=== PATIENT | male | born 1960 | race Caucasian/White ===

== ENCOUNTER 2016-08-05 10:07 | Inpatient (IN) | payer BC, OTHER ==
[~2016-08-05] VITALS: Ht 170.2 cm; Wt 79.0 kg
--- NOTE | ~2016-08-05 | H ---
[facility] [address] [place] [address] HISTORY AND PHYSICAL Name: HARRY PAULA Room #: 211-P [facility] IN M.R.#: [id number] Admission: 08/05/16 Attend Phys: James Ramirez MD, Discharge: 08/06/16 Date of : 64 Report #: [id number] THIS REPORT FOR: //name// CC: FAM unknown James Ramirez DATE OF SERVICE: 08/05/2016 HISTORY OF PRESENT ILLNESS: This is a 56-year-old patient well known to myself who is approximately 2-3 weeks post 6-vessel bypass surgery. He had been home and actually doing well recovering. He was getting ready to start cardiac rehab next week. He awoke this morning around 4:00 a.m. with rapid heartbeat, tachycardia, feeling like his heart was going to jump out of his chest. Not really associated with chest pain, but some mild intermittent lightheadedness. He tried to wait it out before he got up this morning at 7:00 or 8:00 a.m. he states and just felt dizzy, lightheaded and presyncopal. Subsequently, brought to the emergency room. Found to be what appears to have been at least from reports AFib with RVR, rates in the 150s to 160s. He denies any chest pain or anginal-type complaints. The chest x-ray showed a stable appearing nodular density in the right lower lung field, old calcified granuloma and improved aeration of the lung bases compared to discharge 2 weeks prior. His discharge medications had been metoprolol 50 daily, Lipitor 40, amlodipine 5, ramipril 10, baby aspirin, Colace, colchicine. He did have a post pericarditis, colchicine was 0.6 b.i.d., tapering to once a day and melatonin. He has been hemodynamically stable. He has not had any of this tachycardia until this morning. He has been compliant with his medications. PAST MEDICAL HISTORY: Positive for coronary artery disease with 6-vessel bypass, post-procedure pericarditis, Radha syndrome, treated with colchicine; hypertension, hypercholesterolemia, mild DJD. SOCIAL HISTORY: He lives in [place], [place]. He works. No current alcohol or tobacco. 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 FAMILY HISTORY: Strongly positive including father and 2 brothers, premature coronary artery disease, 40s and 50s. REVIEW OF SYSTEMS: Essentially negative except for stated above. Except for the intermittent discomfort, pain, some intermittent constipation, he has done well postop. LABORATORY DATA: Sodium 136, potassium 4.2, creatinine 1.2, glucose 101, GFR 63. Troponin negative. H and H 15 and 44. White count of 10.1, platelets 407. Chest x-ray showed improvement as I stated above. PHYSICAL EXAMINATION: [facility] [address] [place] [address] HISTORY AND PHYSICAL Name: HARRY PAULA Room #: 211-P DIS IN M.R.#: [id number] Admission: 08/05/16 Attend Phys: James Ramirez MD, Discharge: 08/06/16 Date of : 64 Report #: [id number] GENERAL: He is pleasant and alert. VITAL SIGNS: Currently, he is in sinus rhythm with a rate in the 80s. He had been anywhere from 80-130 here initially. He was faster in the Emergency Room, blood pressure 112/64. HEENT: Eyes reveal xanthelasmas. Pharynx is clear. NECK: Shows preserved upstrokes without JVD or bruits. LUNGS: Clear. CARDIOVASCULAR: Regular rate and rhythm, S1, S2. There is no murmur, rub or gallop. ABDOMEN: Soft. No HSM or abdominal bruit. EXTREMITIES: Reveal no edema. Distal pulses were intact. NEUROLOGIC: Nonfocal. SKIN: Warm and dry without xanthoma or ulcer. MUSCULOSKELETAL: No gross joint deformity. ASSESSMENT: 1. Atrial fibrillation with rapid ventricular response. 2. Coronary artery disease with recent coronary bypass surgery x June 2016. 3. Hypertension. 4. Hypercholesterolemia. 5. Strong family history of premature coronary artery disease. RECOMMENDATIONS AND PLAN: We will initiate amiodarone drip. We will anticoagulate enoxaparin with Lovenox b.i.d. We will continue colchicine, metoprolol, p.o. statin. We will use IV amiodarone tonight and that we will presumably if he is in much better control here, switch to p.o. amiodarone and probable discharge soon. We will continue with the tapering dose of oral amiodarone. This is relatively a common occurrence postop bypass surgery. We will have further recommendations in the a.m. to further review. We will also reinstitute a statin. Thank you for asking me to assist in the care of this patient. <ELECTRONICALLY SIGNED> By: James Ramirez MD, FACC 08/10/16 0904 19 13 James Ramirez MD, FACC /nt
--- NOTE | ~2016-08-05 | EKG ---
[address] [employer] IQ (Social Influence Quotient) [place] [address] ELECTROCARDIOGRAM REPORT Name: HARRY PAULA Room #: 211-P ADM IN M.R.#: [id number] Admission: 08/05/16 Attend Phys: James Ramirez MD, Discharge: Date of : 64 Report #: [id number] THIS REPORT FOR: //name// [facility] ED Test Date: 2016-08-05 Test Time: 10:16:10 Pat Name: HARRY PAULA Department: Room: 211 Gender: M [employer]: CHANTAL : 1960 Requested By: Queta Cabrera Order Number: [id number] MD: Cash Whitaker Measurements Intervals [place] Rate: 95 P: 77 NE: 128 QRS: 11 QRSD: 77 T: 57 QT: 335 QTc: 421 Interpretive Statements Sinus rhythm No significant abnormality Compared to ECG 07/18/2016 06:41:19 No significant changes Electronically Signed On 08-05-2016 19:05:56 CDT by Csah Whitaker [email or web address] <ELECTRONICALLY SIGNED> By: Cash Whitaker MD, [facility] 08/05/16 1905 [id number] Cash Whitaker MD, FACC /EPI
--- NOTE | ~2016-08-05 | EKG ---
[address] [place] [address] ELECTROCARDIOGRAM REPORT Name: HARRY PAULA Room #: 211-P ADM IN M.R.#: [id number] Admission: 08/05/16 Attend Phys: James Ramirez MD, Discharge: Date of : 64 Report #: [id number] THIS REPORT FOR: //name// [facility] ED Test Date: 2016-08-05 Test Time: 10:17:55 Pat Name: HARRY PAULA Department: Room: 211 Gender: M Manager Lab: CHANTAL : 1960 Requested By: Queta Cabrera Order Number: [id number] MD: Cash Whitaker Measurements Intervals [place] Rate: 184 P: [place]: QRS: 11 QRSD: 77 T: 96 QT: 295 QTc: 517 Interpretive Statements Supraventricular tachycardia Nonspecific ST and T wave abnormality Compared to ECG 07/18/2016 06:41:19 Supraventricular tachycardia is now present Electronically Signed On 08-05-2016 19:06:51 CDT by Cash Whitaker [email or web address] <ELECTRONICALLY SIGNED> By: Cash Whitaker MD, [facility] 08/05/16 1906 [id number] 1017 Cash Whitaker MD, [facility] /EPI
--- NOTE | ~2016-08-05 | D ---
[facility] [place] [address] [address] DISCHARGE SUMMARY Name: HARRY PAULA Room #: 211-P DIS IN M.R.#: [id number] Admission: 08/05/16 Attend Phys: James Ramirez MD, Discharge: 08/06/16 Date of : 64 Report #: [id number] THIS REPORT FOR: //name// CC: FAM unknown [facility] COURSE: A 56-year-old male approximately 3 weeks post-bypass, presented with his office visit. The CT surgery followup, had woke up prior morning with rapid heartbeat, tachycardia, was found to be in atrial fibrillation with rapid ventricular response with borderline hemodynamic . Rates were quite quick and 190 range. Treated in the ER initially with some IV amiodarone, Lopressor still could not completely maintain but did improve the rate. Subsequently admitted, IV amiodarone load, oral Toprol. He has converted permanently last night, sinus rhythm. He is asymptomatic currently. We will discharge to home on his current medications with the replace the amlodipine with Cardizem 180. Continue Toprol, amiodarone 400 mg b.i.d. for a week and then cut down to 400 a day, at that point at least follow up in my office 2-3 weeks. We will decrease to 200 mg a day. His laboratory work is uneventful, sodium 136, creatinine 1.2, potassium was 4.2. H and H is 15 and 44. He had postop Radha syndrome, has been on colchicine 0.6 b.i.d. We will change that to 0.6 q. day. He has had no recurrent pain, takes hydrocodone at night. We should wean off of that in the next 2-3 weeks. His other medications would metoprolol 50, Lipitor 40, ramipril 10, baby aspirin, Colace and colchicine, amiodarone and Cardizem. DISCHARGE DIAGNOSES: 1. Atrial fibrillation with rapid ventricular response. 2. Coronary artery disease with 3-vessel bypass 3 weeks previously. 3. Post-procedure, pericarditis, Radha syndrome, improved. 4. Hypertension. 5. Hypercholesterolemia. Thank you for asking me to assist in the care of this patient. <ELECTRONICALLY SIGNED> By: James Ramirez MD, FACC 08/10/16 0904 0945 1023 James Ramirez MD, FACC /nt
--- NOTE | ~2016-08-05 | EKG ---
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 : 1960 Requested By: James Ramirez Order Number: [id number] MD: Cash Whitaker Measurements Intervals [place] Rate: 88 P: 51 [place]: 136 QRS: 8 QRSD: 82 T: 60 QT: 396 QTc: 480 Interpretive Statements Sinus rhythm Borderline prolonged QT interval Baseline wander in lead(s) V2 Compared to ECG 08/05/2016 10:17:55 Supraventricular tachycardia no longer present ST (T wave) deviation no longer present Electronically Signed On 08-06-2016 9:09:04 CDT by Cash Whitaker [email or web address] <ELECTRONICALLY SIGNED> By: Cash Whitaker MD, [facility] 08/06/16 0909 [phone] Cash Whitaker MD, [facility] /EPI
[~2016-08-05 10:07] MED LIST: ALTACE10 MG PO; AMLODIPINE BESYL5 M1 PO; ASPIR 8181 MG PO; ATORVASTATIN CA40 MG PO; COLACE 100 MG100 MG PO; COLCHICINE0.6 MG PO; MELATONIN1 MG PO; METOPROLOL SUCC50 MG PO; NORCO 5-325 TA1 EACH PO
[2016-08-05 10:26] LABS: ABSOLUTE NEUTROPHILS 5.8 thou/uL (1.4-8.2); BASOPHILS 0.2 % (0.0-2.0); EOSINOPHILS 1.8 % (0.0-3.0); HEMATOCRIT 44.7 % (42.0-52.0); HEMOGLOBIN 15.2 gm/dL (14.0-18.0); MCH 27.3 pg (26.0-34.0); MCV 80.3 fL (80.0-100.0); MONOCYTES 9.3 % (1.0-8.0); PLATELET COUNT 407 thou/uL (150-400); POLYS 57.7 % (36.0-66.0); RBC 5.57 mil/uL (4.50-6.00); RDW 14.2 % (10.5-14.5); WBC 10.1 thou/uL (4.0-11.0)
[2016-08-05 10:27] LABS: MANUAL DIFF NO
[2016-08-05 11:02] LABS: ANION GAP 10 mmol/L (7-16); CALCIUM 9.7 mg/dL (8.5-10.1); CHLORIDE 101 mmol/L (98-107); CO2 25 mmol/L (21-32); CREATININE 1.2 mg/dL (0.6-1.3); GLUCOSE 101 mg/dL (70-99); MAGNESIUM 1.8 mg/dL (1.8-2.4); POTASSIUM 4.2 mmol/L (3.5-5.1); SODIUM 136 mmol/L (136-145); TROPONIN-I < 0.04 ng/mL (<0.04-0.07)
[2016-08-05 11:49] LABS: URINE BILIRUBIN NEGATIVE (Negative); URINE BLOOD NEGATIVE (Negative); URINE COLOR YELLOW; URINE GLUCOSE-RANDOM* NEGATIVE (Negative); URINE KETONES NEGATIVE (Negative); URINE LEUKOCYTES-REFLEX NEGATIVE (Negative); URINE PROTEIN (DIPSTICK) NEGATIVE (Negative); URINE SPECIFIC GRAVITY <= 1.005 (1.003-1.035); URINE UROBILINOGEN 0.2 E.U./dl (0.2-1.0)
[2016-08-05 12:23] LABS: BUN 14 mg/dL (7-18)
[2016-08-06] MEDS ORDERED: CARDIZEM CD 18180 M3 PO (09:32)
[2016-08-06] MEDS ORDERED: COLCHICINE0.6 MG PO (09:32)
[2016-08-06] MEDS ORDERED: XARELTO20 MG PO (09:33)
[2016-08-06] MEDS ORDERED: PACERONE 200 M200 M1 PO ×2 (09:35→09:50)
== END 2016-08-06 12:10 | disposition home or self-care (01) | DRG 309 ==
LOC: ER 10:07 → EROBS 12:39 → 2N 12:39
PROVIDERS: Emergency Medicine
DX: I48.91 Unspecified atrial fibrillation (principal); I31.9 Disease of pericardium, unspecified; I24.1 Dressler's syndrome; M19.90 Unspecified osteoarthritis, unspecified site; E78.00 Pure hypercholesterolemia, unspecified; I25.10 Atherosclerotic heart disease of native coronary artery without angina pectoris; I10 Essential (primary) hypertension; Z82.49 Family history of ischemic heart disease and other diseases of the circulatory system; Z95.1 Presence of aortocoronary bypass graft; Z79.899 Other long term (current) drug therapy; Z79.01 Long term (current) use of anticoagulants
CPT/HCPCS: 10081

== ENCOUNTER → 2021-03-11 | Outpatient (CLI) | payer BC, OTHER ==
[~2021-03-11] MED LIST changes: +CARDIZEM CD 18180 M3 PO; +PACERONE 200 M200 M1 PO; +XARELTO20 MG PO
== END ==
LOC: SJCVCIMAG 10:18
PROVIDERS: ATTEND Internal Medicine Cardiovascular Disease
DX: I08.8 Other rheumatic multiple valve diseases (principal); I25.10 Atherosclerotic heart disease of native coronary artery without angina pectoris; R07.89 Other chest pain; R06.00 Dyspnea, unspecified; Z95.1 Presence of aortocoronary bypass graft